=== PATIENT | female | born 1980 | race African-American/Black ===

== ENCOUNTER 2023-07-18 10:37 | Emergency (ER) | payer MEDICAID ==
[~2023-07-18] VITALS: Ht 152.4 cm; Wt 72.0 kg
[~2023-07-18 10:37] MED LIST: HYDR25TA PO; LEVO50TA8 PO
[2023-07-18 10:54] VITALS: O2SAT 99
[2023-07-18] MEDS ORDERED: KETOROLAC 60MG/2ML VIAL IM ONE (11:30)
[2023-07-18] MEDS ORDERED: METHOCARBAMOL 500MG TABLET PO ONE (11:30)
[2023-07-18] MEDS ORDERED: METH-653 MT (14:07)
[2023-07-18 14:37] VITALS: BP 132/77; PULSE 69; RESP 16; TEMP 97.1
== END 2023-07-18 14:39 | disposition home or self-care (01) ==
LOC: ER 10:37
DX: M79.602 Pain in left arm (principal); M54.50 Low back pain, unspecified; M31.19 Other thrombotic microangiopathy; I10 Essential (primary) hypertension; Z98.890 Other specified postprocedural states
CPT/HCPCS: 99284; 81025; 73030; 73060; 73090; 73110; 73562; 96372; J1885